=== PATIENT | male | born 1940 | race Caucasian/White ===

== ENCOUNTER 2018-08-23 04:40 | Emergency (ER) | payer MEDICARE, BC ==
--- NOTE | 2018-08-23 08:34 | RAD ---
CHEST 2 VIEWS: HISTORY: Cough and rhonchi. FINDINGS: Cardiac silhouette and pulmonary vasculature are upper limits of normal. Mediastinum midline with po stoperative changes and aortic calcification. No confluent airspace consolidation, pneumothorax, or pleural fluid. Degenerative changes thoracic spine. IMPRESSION: 1. Atherosclerosis. 2. Borderline pulmonary vascular prominence. No florid edema is evident. POS: [facility]
== END 2018-08-23 05:33 | disposition home or self-care (01) ==
LOC: SCSER 04:40
DX: J06.9 Acute upper respiratory infection, unspecified (principal); E11.9 Type 2 diabetes mellitus without complications; E03.9 Hypothyroidism, unspecified; E78.5 Hyperlipidemia, unspecified; I10 Essential (primary) hypertension; Z79.01 Long term (current) use of anticoagulants; Z79.899 Other long term (current) drug therapy; Z79.82 Long term (current) use of aspirin; Z79.84 Long term (current) use of oral hypoglycemic drugs
CPT/HCPCS: 71046

== ENCOUNTER 2022-01-05 09:28 | Outpatient (CLI) | payer MEDICARE, BC ==
[2022-01-05 10:42] LABS: #Eosinphils 0.2 10x3/uL (0.0-0.5); #Monocytes 0.3 10x3/uL (0.0-1.1); #Neutrophils 3.6 10x3/uL (1.5-8.4); %Basophils 0.6 % (0.0-2.0); %Eosinophils 3.7 % (0.0-6.0); %Lymphocytes 22.2 % (18.0-47.0); %Neutrophils 67.1 % (40.0-75.0); Hemoglobin 12.4 g/dL (13.5-17.5); Mean Corpuscular HGB CONC 31.3 g/dL (32.0-36.0); Mean Corpuscular Hemoglobin 28.8 pg (27.0-33.0); Mean Corpuscular Volume 92.1 fl (81.2-95.1); Mean Platelet Volume 11.3 fl (7.4-10.4); Platelet Count 231 10x3/uL (150-450); RBC Distribution Width 14.5 % (11.5-14.5); White Blood Cell (WBC) Count 5.4 10x3/uL (3.5-10.5)
[2022-01-05 10:59] LABS: ALT (SGPT) 16 U/L (8-55); AST (SGOT) 23 U/L (5-34); Albumin 3.9 g/dL (3.4-4.8); Alkaline Phosphatase 62 U/L (40-110); Anion Gap 12 mmol/L (10-20); BUN (Urea Nitrogen) 21 mg/dL (8.4-25.7); Bilirubin, Total 0.7 mg/dL (0.2-1.2); Calc. Creatinine Clearance 0 mL/min (70-130); Carbon Dioxide 28 mmol/L (23-31); Chloride 103 mmol/L (98-107); Globulin 2.6 g/dL (2.4-3.5); Glucose 303 mg/dL (83-110); Potassium 5.2 mmol/L (3.5-5.1); Protein, Total 6.5 g/dL (5.8-8.1); Sodium 138 mmol/L (136-145)
[2022-01-05 21:42] LABS: SARS-CoV-2 PCR by NAA Not Detected (NotDetected)
== END 2022-01-05 09:29 | disposition home or self-care (01) ==
LOC: LABBT 09:28
PROVIDERS: ATTEND Internal Medicine Cardiovascular Disease
DX: Z01.812 Encounter for preprocedural laboratory examination (principal); R94.39 Abnormal result of other cardiovascular function study; Z20.822 Contact with and (suspected) exposure to COVID-19
CPT/HCPCS: 80053; 85025; U0003; U0005

== ENCOUNTER 2022-01-10 06:36 | Day surgery (SDC) | payer MEDICARE, BC ==
[2022-01-06 13:26] VITALS: BMI 27.7
[2022-01-10] MEDS ORDERED: Lidocaine 1% (PF) 30 ML VIAL ONE (06:39)
[2022-01-10] MEDS ORDERED: Heparin 10,000 UNITS/ 10 ML VIAL ONE (06:40)
[2022-01-10] MEDS ORDERED: Midazolam HCl 2 mg/2 ml Vial ONE (07:27)
[2022-01-10] MEDS ORDERED: Fentanyl 100 MCG/2 ML VIAL ONE (07:28)
[2022-01-10 07:37] LABS: Cardiac Risk 3.8 (Less than 4.5)
[2022-01-10 07:43] LABS: PTT 28.2 sec (22.9-36.1); Prothrombin Time 13.7 sec (12.0-14.7)
[2022-01-10] MEDS ORDERED: Bivalirudin 250 MG VIAL ONE (07:53)
[2022-01-10] MEDS ORDERED: Clopidogrel Bisulfate 300 MG TAB ONE (08:27)
[2022-01-10] MEDS ORDERED: Nitroglycerin 100MG/250ML BOT 250 ML ONE (08:27)
[2022-01-10] MEDS ORDERED: Iopamidol 370 76% 100 ML VIAL ONE (09:05)
[2022-01-10] MEDS ORDERED: Nitroglycerin 0.4 MG TAB (25 Tab Bottle) SL PRN (13:30)
[2022-01-10] MEDS ORDERED: Sodium Chloride 0.9% 1,000 ML IV SCH (13:30)
[2022-01-10] MEDS ORDERED: Morphine 4 MG/ML VIAL SLOW IVP PRN (13:30)
[2022-01-10] MEDS ORDERED: Morphine 2 MG/ML VIAL SLOW IVP PRN (13:30)
[2022-01-11] MEDS ORDERED: Aspirin Chewable 81 MG TAB PO SCH (09:00)
[2022-01-11] MEDS ORDERED: Clopidogrel Bisulfate 75 MG TAB PO SCH (09:00)
== END 2022-01-10 20:10 | disposition home or self-care (01) ==
LOC: CCL 06:36
PROVIDERS: ATTEND Internal Medicine Cardiovascular Disease
PROC: 02703DZ Dilation of Coronary Artery, One Artery with Intraluminal Device, Percutaneous Approach (ICD-10-PCS; principal; 2022-01-10)
PROC: 4A023N7 Measurement of Cardiac Sampling and Pressure, Left Heart, Percutaneous Approach (ICD-10-PCS; 2022-01-10)
PROC: B2111ZZ Fluoroscopy of Multiple Coronary Arteries using Low Osmolar Contrast (ICD-10-PCS; 2022-01-10)
PROC: B2171ZZ Fluoroscopy of Right Internal Mammary Bypass Graft using Low Osmolar Contrast (ICD-10-PCS; 2022-01-10)
DX: R94.39 Abnormal result of other cardiovascular function study (principal); I25.10 Atherosclerotic heart disease of native coronary artery without angina pectoris; I25.82 Chronic total occlusion of coronary artery; I10 Essential (primary) hypertension; I42.9 Cardiomyopathy, unspecified; E78.00 Pure hypercholesterolemia, unspecified; E03.9 Hypothyroidism, unspecified; E11.9 Type 2 diabetes mellitus without complications; I44.0 Atrioventricular block, first degree; I45.10 Unspecified right bundle-branch block; Z87.891 Personal history of nicotine dependence; Z79.01 Long term (current) use of anticoagulants; Z79.4 Long term (current) use of insulin; Z79.82 Long term (current) use of aspirin; Z79.84 Long term (current) use of oral hypoglycemic drugs; Z79.890 Hormone replacement therapy; Z79.899 Other long term (current) drug therapy; Z95.1 Presence of aortocoronary bypass graft; Z95.2 Presence of prosthetic heart valve
CPT/HCPCS: 36416; 80061; 85347; 85610; 85730; 92928; 92929; 93005; 93455; 99152; 99153; C1876; J0583; J1644; J2001; J2250; J2270; J3010; Q9967

== ENCOUNTER 2022-01-28 15:47 | Outpatient (CLI) | payer MEDICARE, BC | END 2022-01-28 15:48 | disposition home or self-care (01) | LOC: ULT 15:47 | PROVIDERS: ATTEND Family Medicine | DX: M79.604 Pain in right leg (principal); R60.0 Localized edema ==

== ENCOUNTER 2022-03-31 14:02 | Outpatient (CLI) | payer MEDICARE, BC | END 2022-03-31 14:03 | disposition home or self-care (01) | LOC: LABBT 14:02 | PROVIDERS: ATTEND Orthopaedic Surgery | DX: Z01.812 Encounter for preprocedural laboratory examination (principal); M17.11 Unilateral primary osteoarthritis, right knee; Z20.822 Contact with and (suspected) exposure to COVID-19 | CPT/HCPCS: 36415; 80048; 87081; 87811 ==

== ENCOUNTER 2023-06-01 11:58 | Outpatient (CLI) | payer MEDICARE, BC ==
[2023-06-01 13:57] LABS: #Eosinphils 0.3 10x3/uL (0.0-0.5); #Monocytes 0.4 10x3/uL (0.0-1.1); #Neutrophils 3.4 10x3/uL (1.5-8.4); %Basophils 0.7 % (0.0-2.0); %Eosinophils 4.7 % (0.0-6.0); %Lymphocytes 27.5 % (18.0-47.0); %Monocytes 7.3 % (0.0-10.0); %Neutrophils 59.5 % (40.0-75.0); Hemoglobin 11.3 g/dL (13.5-17.5); Mean Corpuscular HGB CONC 30.5 g/dL (32.0-36.0); Mean Corpuscular Hemoglobin 24.8 pg (27.0-33.0); Mean Corpuscular Volume 81.1 fl (81.2-95.1); Mean Platelet Volume 9.9 fl (7.4-10.4); Platelet Count 354 10x3/uL (150-450); RBC Distribution Width 16.8 % (11.5-14.5); Red Blood Cell (RBC) Count 4.56 10x6/uL (4.32-5.72); White Blood Cell (WBC) Count 5.8 10x3/uL (3.5-10.5)
[2023-06-01 14:18] LABS: Anion Gap 15 mmol/L (10-20); BUN (Urea Nitrogen) 28 mg/dL (8.4-25.7); Calc. Creatinine Clearance 0 mL/min (70-130); Calcium 8.5 mg/dL (7.8-10.44); Carbon Dioxide 23 mmol/L (23-31); Chloride 102 mmol/L (98-107); Estimated GFR 49; Glucose 343 mg/dL (83-110); Potassium 5.1 mmol/L (3.5-5.1); Sodium 135 mmol/L (136-145)
[2023-06-01 14:27] LABS: INR-International Normal Ratio 3.2; PTT 36.9 sec (22.0-33.0); Prothrombin Time 33.4 sec (9.5-12.1)
== END 2023-06-01 11:59 | disposition home or self-care (01) ==
LOC: LABBT 11:58
PROVIDERS: ATTEND Orthopaedic Surgery
DX: Z01.818 Encounter for other preprocedural examination (principal); M17.11 Unilateral primary osteoarthritis, right knee
CPT/HCPCS: 80048; 85025; 85610; 85730; 87081; 93005; 93010

== ENCOUNTER 2024-05-30 13:43 | Outpatient (CLI) | payer MEDICARE, BC | END 2024-05-30 13:44 | disposition home or self-care (01) | LOC: DTY/OP 13:43 | PROVIDERS: ATTEND Family Medicine | DX: E11.65 Type 2 diabetes mellitus with hyperglycemia (principal) | CPT/HCPCS: 97802 ==